=== PATIENT | female | born 1965 | race Caucasian/White ===

== ENCOUNTER 2016-11-10 17:17 | Emergency (ER) | payer SELFPAY ==
[~2016-11-10] VITALS: Ht 165.1 cm; Wt 83.9 kg
[2016-11-10 17:36] VITALS: BP 99/67
[2016-11-10] MEDS ORDERED: IBUPROFEN 400 MG TABLET PO ONE (18:00)
[2016-11-10] MEDS ORDERED: IBUPROFEN 400 MG TABLET ONE ×2 (18:17→18:27)
== END 2016-11-10 18:30 | disposition home or self-care (01) ==
LOC: ER 17:20
DX: M75.31 Calcific tendinitis of right shoulder (principal)
CPT/HCPCS: 73030; 99284; A4606; Z7610

== ENCOUNTER 2018-06-12 21:40 | Emergency (ER) | payer SELFPAY ==
[~2018-06-12] VITALS: Ht 165.1 cm; Wt 77.1 kg
--- NOTE | 2018-06-12 22:37 | NUR ---
ASSUMED CARE OF PT. PT PRESENTED TO THE ER WITH A LT HAND LACERATION. PT'S LAC WAS CLEANED AND PT IS AWAITING SUTURING BY .
[2018-06-12] MEDS ORDERED: LIDOCAINE 2% 20 ML MDV ONE (22:49)
[2018-06-12] MEDS ORDERED: TDAP [DIPH/PERTUSSIS/TET] 0.5 ML VIAL IM ONE ×2 (22:49→23:00)
--- NOTE | 2018-06-12 22:55 | NUR ---
Patient discharged to home in stable condition. Written and verbal after care instructions given. Patient verbalizes understanding of instruction. WOUND COVERED WITH A BANDAID. PT AMBUALTED OUT WITH A STEADY GAIT. VSS
--- NOTE | 2018-06-12 22:58 | NUR ---
Adore RANDHAWA IS AT THE BEDSIDE SUTURING THE PT'S HAND LACERATION.
[2018-06-12] MEDS ORDERED: LIDOCAINE 2% 20 ML MDV TP ONE (23:00)
[2018-06-12 23:50] VITALS: BP 128/79
== END 2018-06-12 22:55 | disposition home or self-care (01) ==
LOC: ER 21:43
DX: S61.412A Laceration without foreign body of left hand, initial encounter (principal); Z98.890 Other specified postprocedural states; W26.0XXA Contact with knife, initial encounter; Y93.89 Activity, other specified; Y92.89 Other specified places as the place of occurrence of the external cause; Y99.8 Other external cause status
CPT/HCPCS: 12001; 90471; 90715; 99283; A6403; J3490

== ENCOUNTER 2022-10-07 15:21 | Emergency (ER) | payer MEDICAID, OTHER ==
[~2022-10-07] VITALS: Ht 165.1 cm; Wt 77.1 kg
--- NOTE | 2022-10-07 15:35 | NUR ---
RECEVED PT 57 YRS FEMALE FROM HOME C/O CHEST PAIN ON AND OFF 2 DAYS AND WAS ON AND OFF FOR COUPLE MOUNTH
--- NOTE | 2022-10-07 15:45 | NUR ---
BLOOD DROW BY LAB TACH
[2022-10-07 16:18] LABS: BASOPHILS % (AUTO) 0.5 % (0.0-2.0); EOSINOPHILS % (AUTO) 2.3 % (0.0-6.0); HEMATOCRIT 39 % (33-45); HEMOGLOBIN 12.9 g/dL (11.5-14.8); LYMPHOCYTES % (AUTO) 30.7 % (20.0-44.0); MEAN CORPUSCULAR HGB CONC 33 g/dl (31.0-36.0); MEAN CORPUSCULAR VOLUME 95 fL (82-100); MONOCYTES # (AUTO) 0.5 K/uL (0.1-1.30); MONOCYTES % (AUTO) 7.8 % (2.0-12.0); NEUTROPHILS # (AUTO) 3.9 K/uL (1.8-8.9); NEUTROPHILS % (AUTO) 58.7 % (43.0-81.0); PLATELET COUNT (AUTO) 291 K/uL (150-450); WHITE BLOOD COUNT (AUTO) 6.6 K/uL (4.3-11.0)
--- NOTE | 2022-10-07 16:20 | NUR ---
CHEST XRAY DONE AT BED SIDE
[2022-10-07 16:39] LABS: ALANINE AMINOTRANSFERASE 20 U/L (12-78); ALBUMIN 3.2 g/dL (3.4-5.0); ALKALINE PHOSPHATASE 91 U/L (46-116); ASPARTATE AMINOTRANSFERASE 16 U/L (15-37); BILIRUBIN,DIRECT 0.1 mg/dL (0.0-0.2); BILIRUBIN,TOTAL 0.3 mg/dL (0.2-1.0); CALCIUM, SERUM 8.8 mg/dL (8.5-10.1); CARBON DIOXIDE 27 mmol/L (21-32); CHLORIDE 107 mmol/L (98-107); CREATININE 0.9 mg/dL (0.6-1.3); GLUCOSE 98 mg/dL (74-106); POTASSIUM 3.9 mmol/L (3.5-5.1); SODIUM SERUM 141 mmol/L (136-145); TOTAL PROTEIN, SERUM 6.9 g/dL (6.4-8.2); UREA NITROGEN, BLOOD 16 mg/dL (7-18)
--- NOTE | 2022-10-07 17:36 | NUR ---
RESTING AND ASLEPY
--- NOTE | 2022-10-07 18:00 | NUR ---
DINESES CHEST PAIN AT THIS TIME
--- NOTE | 2022-10-07 18:35 | NUR ---
Patient discharged to home in stable condition. Written and verbal after care instructions given. Patient verbalizes understanding of instruction.
[2022-10-07 18:49] VITALS: BP 117/81; TEMP 98.6; O2SAT 97
== END 2022-10-07 18:50 | disposition home or self-care (01) ==
LOC: ER 15:31
DX: R06.02 Shortness of breath (principal); Z90.49 Acquired absence of other specified parts of digestive tract
CPT/HCPCS: 36415; 71045-TC; 80048-TC; 80076-TC; 83880; 84484-TC; 85025-TC

== ENCOUNTER 2024-05-01 12:16 | Emergency (ER) | payer MEDICAID, OTHER ==
[~2024-05-01] VITALS: Ht 165.1 cm; Wt 95.3 kg
[2024-05-01] MEDS: LIDOCAINE 5% (PATCH) 1 EA PATCH TP STA (14:03)
[2024-05-01] MEDS ORDERED: LIDO30AD10 TP (14:06)
[2024-05-01] MEDS ORDERED: IBUP-1955 PO (14:06)
[2024-05-01] MEDS ORDERED: LIDOCAINE 5% (PATCH) 1 EA PATCH TP ONE (14:13)
[2024-05-01] MEDS ORDERED: IBUPROFEN 600 MG TABLET ONE (14:14)
[2024-05-01] MEDS: IBUPROFEN 600 MG TABLET PO ONE (14:17)
[2024-05-01 14:31] VITALS: BP 138/74; TEMP 98.2; O2SAT 99
== END 2024-05-01 14:31 | disposition home or self-care (01) ==
LOC: ER 12:30
DX: S76.311A Strain of muscle, fascia and tendon of the posterior muscle group at thigh level, right thigh, initial encounter (principal); M79.651 Pain in right thigh; I83.91 Asymptomatic varicose veins of right lower extremity; Z90.710 Acquired absence of both cervix and uterus; X58.XXXA Exposure to other specified factors, initial encounter; Y93.89 Activity, other specified; Y92.89 Other specified places as the place of occurrence of the external cause; Y99.8 Other external cause status
CPT/HCPCS: 93971-TC